=== PATIENT | female | born 1945 | race Caucasian/White ===

== ENCOUNTER 2020-06-25 10:08 | Observation (INO) | payer MEDICARE ==
[~2020-06-25] VITALS: Ht 160 cm; Wt 69.8 kg
[2020-06-25 10:45] VITALS: BP 166/64
[2020-06-25] MEDS: SODIUM CHLORIDE 0.9% 1,000 ML IV SCH ×6 (11:00→22:33)
[2020-06-25] MEDS ORDERED: ASPIRIN 325 MG TABLET EC PO ONE (11:00)
[2020-06-25] MEDS ORDERED: ACYC-57 PO (11:10)
[2020-06-25] MEDS ORDERED: VITA1TAB19 PO (11:10)
[2020-06-25] MEDS ORDERED: berberine (11:10)
[2020-06-25] MEDS ORDERED: ISOS30TA8 PO ×2 (11:10→11:11)
[2020-06-25] MEDS ORDERED: ASPI81TA45 PO (11:10)
[2020-06-25] MEDS ORDERED: LISI5TAB7 PO (11:12)
[2020-06-25] MEDS ORDERED: ROSU10TA2 PO (11:13)
[2020-06-25] MEDS ORDERED: METO25TA91 PO (11:13)
[2020-06-25 11:15] LABS: ALANINE AMINOTRANSFERASE 42 U/L (12-78); ALBUMIN 3.9 g/dL (3.4-5.0); BASOPHILS % (AUTO) 1 % (0-1); CALCIUM 9.4 mg/dL (8.5-10.1); CREATININE 0.82 mg/dL (0.55-1.02); EOSINOPHILS % (AUTO) 2 % (1-7); LYMPHOCYTES % (AUTO) 27 % (22-44); MEAN CORPUSCULAR HEMOGLOBIN 30.2 pg (27.0-34.8); MEAN CORPUSCULAR HGB CONC 33.5 g/dL (32.4-35.8); MEAN PLATELET VOLUME 10.3 fL (7.4-10.4); MONOCYTES % (AUTO) 9 % (2-9); NEUTROPHILS % (AUTO) 61 % (42-75); PLATELET COUNT 206 x10^3/uL (130-400); RED BLOOD COUNT 5.05 x10^6/uL (3.82-5.3); RED CELL DISTRIBUTION WIDTH 13.9 % (9.6-15.2)
[2020-06-25] MEDS ORDERED: METF500T17 PO (11:15)
[2020-06-25] MEDS ORDERED: POTA15TA9 PO (11:16)
[2020-06-25 11:18] LABS: ALKALINE PHOSPHATASE 109 U/L (45-117); BILIRUBIN,TOTAL 0.6 mg/dL (0.2-1.0); TOTAL PROTEIN 7.4 g/dL (6.4-8.2)
[2020-06-25] MEDS ORDERED: MULT1TAB57 PO (11:18)
[2020-06-25] MEDS ORDERED: CHOL10003 PO (11:18)
[2020-06-25 11:19] LABS: INTERNATIONAL NORMALIZED RATIO 0.92 (0.93-1.1); PROTHROMBIN TIME 9.8 Seconds (9.6-11.5)
[2020-06-25] MEDS ORDERED: NITR0.6T4 SL (11:19)
[2020-06-25] MEDS ORDERED: MAGN100T6 PO (11:20)
[2020-06-25 11:25] LABS: ANION GAP 3 mmol/L (5-15); CHLORIDE 110 mmol/L (98-107)
[2020-06-25 11:30] LABS: MD NO
[2020-06-25] MEDS ORDERED: VERAPAMIL 2.5 MG/ML, 2ML ONE (12:28)
[2020-06-25] MEDS ORDERED: NITROGLYCERIN 30 MCG/ML, 20ML VIAL ONE (12:28)
[2020-06-25] MEDS ORDERED: LIDOCAINE-MPF 1%, 5ML ONE (12:28)
[2020-06-25] MEDS ORDERED: HEPARIN 1,000 UNITS/ML, 10ML ONE (12:28)
[2020-06-25] MEDS ORDERED: FENTANYL PF 100 MCG/2ML ONE (12:28)
[2020-06-25] MEDS ORDERED: MIDAZOLAM 1 MG/ML, 2ML ONE ×2 (12:28→13:38)
[2020-06-25] MEDS ORDERED: TICAGRELOR 90 MG TABLET ONE (13:13)
[2020-06-25] MEDS ORDERED: BIVALIRUDIN 250 MG ONE (13:13)
[2020-06-25] MEDS ORDERED: ACYCLOVIR 800 MG TABLET PO PRN (14:30)
[2020-06-25] MEDS: POTASSIUM CITRATE 10 MEQ PO SCH ×2 (16:00→21:19)
[2020-06-25 20:22] VITALS: BP 155/74
[2020-06-25] MEDS ORDERED: ATORVASTATIN 10 MG TABLET PO SCH (21:00)
[2020-06-25] MEDS: metFORMIN 500 MG TABLET PO SCH (21:19)
[2020-06-25] MEDS: TICAGRELOR 90 MG TABLET PO SCH (21:19)
[2020-06-26 00:25] VITALS: BP 153/77
[2020-06-26 06:03] LABS: ANION GAP 4 mmol/L (5-15); CALCIUM 9.2 mg/dL (8.5-10.1); CHLORIDE 110 mmol/L (98-107); CREATININE 0.72 mg/dL (0.55-1.02)
[2020-06-26 06:33] VITALS: BP 149/73
[2020-06-26] MEDS ORDERED: TICA90TA PO (08:40)
[2020-06-26] MEDS ORDERED: ROSU10TA2 PO (08:40)
[2020-06-26] MEDS ORDERED: MULTIVITS,STRESS FORMULA 1 TABLET PO SCH (09:00)
[2020-06-26] MEDS ORDERED: MAGNESIUM CHLORIDE 64 MG TABLET.DR PO SCH (09:00)
[2020-06-26] MEDS ORDERED: LISINOPRIL 5 MG TABLET PO SCH (09:00)
[2020-06-26] MEDS ORDERED: MULTIVITAMIN 1 TABLET PO SCH (09:00)
[2020-06-26] MEDS: POTASSIUM CITRATE 10 MEQ PO SCH (09:00)
[2020-06-26] MEDS ORDERED: ISOSORBIDE MONONITRATE ER 30 MG TABLET PO SCH (09:00)
[2020-06-26] MEDS ORDERED: METOPROLOL SUCCINATE 25 MG TAB.ER.24H PO SCH (09:00)
[2020-06-26] MEDS ORDERED: ASPIRIN 81 MG TABLET EC PO SCH ×2 (09:00)
[2020-06-26] MEDS ORDERED: CHOLECALCIFEROL 1,000 UNIT TABLET PO SCH (09:00)
[2020-06-26] MEDS: metFORMIN 500 MG TABLET PO SCH (09:22)
[2020-06-26] MEDS: TICAGRELOR 90 MG TABLET PO SCH (09:23)
== END 2020-06-26 10:10 | disposition home or self-care (01) ==
LOC: CACL 10:08 → 5SO 15:36 → CACL 22:18 → DCLOUNGE 06-26 10:05
PROVIDERS: ADMIT Internal Medicine Cardiovascular Disease; ATTEND Internal Medicine Cardiovascular Disease
DX: I25.119 Atherosclerotic heart disease of native coronary artery with unspecified angina pectoris (principal); I10 Essential (primary) hypertension; E11.9 Type 2 diabetes mellitus without complications; R94.30 Abnormal result of cardiovascular function study, unspecified; Z79.899 Other long term (current) drug therapy; Z79.82 Long term (current) use of aspirin; Z82.49 Family history of ischemic heart disease and other diseases of the circulatory system
CPT/HCPCS: 36415; 80048; 80053; 85014; 85018; 85025; 85610; 85730; 93005; 93458; 99156; 99157; C1725; C1769; C1874; C1887; C1894; C9600; G0378; J0583; J1644; J2250; J3010; Q9967